=== PATIENT | female | born 1940 | race Caucasian/White ===

== ENCOUNTER 2019-03-18 17:10 | Emergency (ER) | payer MEDICARE, OTHER ==
[2019-03-18 17:43] VITALS: BP 155/80
[2019-03-18] MEDS ORDERED: Ipratropium 0.5MG/2.5ML NEB* 0.5 MG/2.5 ML NEB.SOLN INH ONE (17:59)
[2019-03-18] MEDS ORDERED: predniSONE TAB* 20 MG PO ONE (17:59)
[2019-03-18] MEDS ORDERED: Albuterol 2.5 MG/3 ML NEB.SOL* (0.083%) INH ONE (17:59)
--- NOTE | 2019-03-18 19:29 | UC ---
Respiratory Complaint HPI - HPI Summary HPI Summary: PATIENT IS HERE IN [place] VISITING FOR HER GRANDDAUGHTER'S GRADUATION. OVER THE PAST FEW DAYS SHE HAS DEVELOPED NASAL CONGESTION, COUGH, ST DUE TO COUGH, WHEEZE, SHORTNESS OF BREATH AND EAR PRESSURE. SHE DENIES ANY FEVER, NAUSEA/ VOMITING, CP. SHE STATES SHE HAS A 50 YEAR HISTORY OF SMOKING BUT QUIT 7 YEARS AGO. IS NOT SURE WHAT HER BASELINE OXYGEN SATURATION IS. STATES SHE HAS NEVER BEEN FORMALLY EVALUATED FOR COPD. SHE DOES NOT HAVE AN INHALER AT HOME. - History of Current Complaint Chief Complaint: UCRespiratory Stated Complaint: CHEST CONGESTION Time Seen by Provider: 03/18/19 17:37 Hx Obtained From: Patient, Family/Family Assessment Worker - SON Onset/Duration: Gradual Onset, Lasting Days, Still Present Timing: Constant Severity Initially: Moderate Severity Currently: Moderate Pain Intensity: 0 Pain Scale Used: 0-10 Numeric Character: Cough: Nonproductive Alleviating Factors: Nothing Associated Signs And Symptoms: Positive: Dyspnea, Wheezing, Nasal Congestion. Negative: Fever, Pleuritic Chest Pain, Hemoptysis, Dizziness, URI - Allergies/Home Medications Allergies/Adverse Reactions: Allergies Allergy/AdvReac Type Severity Reaction Status Date / Time contrast dye Allergy Hives Uncoded 03/18/19 17:44 Home Medications: Home Medications Aspirin 81 mg CHEW TAB* 81 mg PO DAILY 03/18/19 [History Confirmed 03/18/19] Metoprolol Tartrate 100 mg PO 03/18/19 [History] Multivit-Min/Iron/Folic/Lutein [Centrum Silver Women Tablet] 1 each PO 03/18/19 [History] amLODIPine TAB* [Norvasc 5 mg TAB*] 2.5 mg PO DAILY 03/18/19 [History Confirmed 03/18/19] hydrALAZINE TAB* [Apresoline TAB*] 25 mg PO BID 03/18/19 [History Confirmed ] hydroCHLOROthiazide [Hydrochlorothiazide] 12.5 mg PO 03/18/19 [History] PMH/Surg Hx/FS Hx/Imm Hx Endocrine History: Dyslipidemia Cardiovascular History: Cardiac Disease, Hypertension - Surgical History Surgical History: Yes Surgery Procedure, Year, and Place: cateract, hysterectomy - Family History Known Family History: Positive: Non-Contributory - Social History Alcohol Use: Weekly Substance Use Type: None Smoking Status (MU): Former Smoker Review of Systems All Other Systems Reviewed And Are Negative: Yes Constitutional: Positive: Negative ENT: Positive: Sore Throat, Ear Ache Respiratory: Positive: Shortness Of Breath, Cough, Other - WHEEZE Cardiovascular: Positive: Negative Gastrointestinal: Positive: Negative Physical Exam Triage Information Reviewed: Yes Appearance: Well-Appearing, No Pain Distress, Well-Nourished Vital Signs: Initial Vital Signs Temp 98.5 F 03/18/19 17:38 Pulse 78 03/18/19 17:38 Resp 18 03/18/19 17:38 BP 155/80 03/18/19 17:38 Pulse Ox 92 03/18/19 17:38 Vital Signs Reviewed: Yes Eyes: Positive: Conjunctiva Clear ENT: Positive: Hearing grossly normal, Pharynx normal, TMs normal Neck: Positive: Supple, Nontender, No Lymphadenopathy Respiratory: Positive: No respiratory distress, No accessory muscle use, Decreased breath sounds - MILDLY, Wheezing - OCCASIONAL EXP Cardiovascular Exam: Normal Abdomen Description: Positive: Soft Musculoskeletal: Positive: No Edema Neurological: Positive: Alert Psychological: Positive: Normal Response To Family, Age Appropriate Behavior Skin: Negative: Rashes Respiratory Course/Dx - Course Course Of Treatment: PATIENT FELT IMPROVED AFTER A DUONEB TREATMENT AND 40 MG OF PREDNISONE. LONG DISCUSSION WAS HAD WITH THE PATIENT AND HER SON ABOUT UNKNOWN BASELINE OXYGEN SATURATION. PATIENT HAS PRIMARY CARE PHYSICIANS IN BOTH [place] AND [place]. SHE HAS BEEN HERE IN [place] FOR A FEW DAYS FOR HER GRANDDAUGHTER'S GRADUATION. SHE WILL BE LEAVING TO GO BACK HOME TO [place] TOMORROW. GIVEN HER 50 YEAR HISTORY OF SMOKING SHE LIKELY HAS UNDERLYING COPD AND IT WOULD NOT BE SURPRISING IF 92% IS HER BASELINE OXYGEN SATURATION. GIVEN HER IMPROVEMENT AFTER A NEBULIZER TREATMENT AND PREDNISONE THE PATIENT HAS OPTED TO DEFER CHEST X-RAY FOR NOW IN FAVOR OF MEDICAL MANAGEMENT FOR PROBABLE COPD AND ALLERGIES. SHE STATES SHE WILL FOLLOW-UP WITH HER PCP WHEN SHE RETURNS TO [place] IN THE NEXT COUPLE OF DAYS. I HAVE ADVISED HER TO DISCUSS OFFICIAL EVALUATION FOR COPD. SHE WILL GO TO THE NEAREST EMERGENCY ROOM IF HER SYMPTOMS WORSEN. SHE WILL BE TREATED WITH PREDNISONE, ALBUTEROL INHALER, FLONASE AND OTC ANTIHISTAMINES. - Differential Dx/Diagnosis Provider Diagnosis: Environmental allergies, COPD suggested by initial evaluation Discharge - Sign-Out/Discharge Documenting (check all that apply): Patient Departure All imaging exams completed and their final reports reviewed: No Studies - Discharge Plan Condition: Stable Disposition: HOME Prescriptions: Albuterol HFA INHALER* [Ventolin HFA Inhaler*] 2 puff INH Q4H PRN #1 mdi PRN Reason: Shortness Of Breath Fluticasone NASAL SPRAY 50MCG* [Flonase NASAL SPRAY 50MCG*] 2 spray BOTH NARES DAILY #1 btl Inhaler, Assist Devices [Aerochamber Mini] 1 each MC Q4H PRN #1 spacer PRN Reason: Cough predniSONE TAB* [Deltasone 20 MG TAB*] 40 mg PO DAILY #8 tab Patient Education Materials: COPD (Chronic Obstructive Pulmonary Disease) (ED) , General Allergic Reaction (ED) Referrals: No Primary Care Phys,NOPCP [Primary Care Provider] - Additional Instructions: YOU LIKELY HAVE UNDERLYING COPD AND YOUR SYMPTOMS HAVE BEEN AGGRAVATED BY ALLERGIES TO THE LOCAL POLLENS. YOU FELT BETTER AFTER A NEBULIZER TREATMENT AND A DOSE OF PREDNISONE. WE WILL CONTINUE THE PREDNISONE ONCE DAILY FOR THE NEXT 4 DAYS. ALBUTEROL INHALER EVERY 4 HOURS NEEDED. I RECOMMEND YOU TAKE 2 PUFFS IN THE MORNING AND 2 PUFFS AT NIGHT BEFORE BED FOR NOW WHILE YOU ARE HAVING ACUTE SYMPTOMS. SIMILARLY I WOULD RECOMMEND YOU USE NASAL FLONASE TO HELP WITH NASAL CONGESTION DUE TO ALLERGIES. START TAKING OTC ZYRTEC ONCE DAILY IN THE MORNING. ONCE YOU'RE FEELING BETTER AND/OR YOU RETURN TO YOUR NORMAL CLIMATE YOUR SYMPTOMS WILL LIKELY SUBSIDE AND YOU MAY DISCONTINUE USING THESE MEDICINES. GO TO THE ER WITHOUT FAIL IF YOU DEVELOP WORSENING SHORTNESS OF BREATH, FEVER, CHEST PAIN OR ANY OTHER CONCERNING SYMPTOMS. YOUR OXYGEN SATURATION HERE WAS ABOUT 92%. THIS MAY BE YOUR BASELINE. GIVEN YOU FELT BETTER AFTER TREATMENT HERE TODAY WILL HOLD OFF ON CHEST XRAY FOR NOW. CONSIDER OFFICIAL EVALUATION FOR COPD WITH YOUR PCP BACK HOME. - Billing Disposition and Condition Condition: STABLE Disposition: Home
== END 2019-03-18 19:20 | disposition home or self-care (01) ==
LOC: UCEAST 17:10
DX: J30.2 Other seasonal allergic rhinitis (principal); R06.02 Shortness of breath; I11.9 Hypertensive heart disease without heart failure; Z79.82 Long term (current) use of aspirin; Z91.041 Radiographic dye allergy status; Z87.891 Personal history of nicotine dependence
CPT/HCPCS: 99202; G0463; J7512

== ENCOUNTER 2024-07-08 13:29 | Inpatient (IN) ==
[2024-07-08 17:08] LABS: ABS Basophils 0.1 10^3/uL (0.0-0.1); ABS Eosinophils 0.1 10^3/uL (0.0-0.5); ABS Lymphocytes 0.5 10^3/uL (1.0-4.8); ABS Monocytes 0.6 10^3/uL (0.0-0.9); ABS Neutrophils 9.1 10^3/uL (1.5-7.6); Eosinophil % 0.7 %; Hematocrit 27.9 % (35-45); Hemoglobin 8.9 g/dL (11.5-14.3); Lymphocyte % 5.3 %; Mean Corpuscular Hemoglobin 25.8 pg (27-33); Mean Corpuscular Hgb Conc 32.1 g/dL (31-36); Mean Corpuscular Volume 80.5 fL (80-97); Platelet Count 230 10^3/uL (150-450); Red Blood Count 3.46 10^6/uL (3.63-4.92); Red Cell Distribution Width 21.4 % (12-17); White Blood Count 10.3 10^3/uL (3.8-11.8)
[2024-07-08 17:48] LABS: Albumin 3.2 g/dL (3.2-5.2); Calcium 8.3 mg/dL (8.6-10.3); Creatinine, Serum 4.16 mg/dL (0.51-0.95); Globulin 3.2 g/dL (2-4); Potassium 4.1 mmol/L (3.5-5.0); Total Bilirubin 0.5 mg/dL (0.2-1.0); Total Protein 6.4 g/dL (6.4-8.9); eGFR CKD-EPI 10.1 (>60)
[2024-07-08 18:38] LABS: High Sensitivity Troponin 1 Hr 98 pg/mL (<15)
[2024-07-08] MEDS: Furosemide 40 mg/4 ml IV VIAL IV SLOW PU ONE (20:38)
[2024-07-08] MEDS: Heparin 5000 UNITS/ML 1 mL VIAL SUBCUT SCH (23:05)
[2024-07-08] MEDS: NF:BUDESONIDE/GLYCOPYR/FORMOTEROL MDI (NF) INH SCH (23:11)
[2024-07-09 07:08] LABS: ABS Basophils 0.1 10^3/uL (0.0-0.1); ABS Eosinophils 0.1 10^3/uL (0.0-0.5); ABS Lymphocytes 0.6 10^3/uL (1.0-4.8); ABS Monocytes 0.7 10^3/uL (0.0-0.9); ABS Neutrophils 7.6 10^3/uL (1.5-7.6); ABS Nucleated RBC 0.01 10^3/ul; Eosinophil % 1.4 %; Hematocrit 27.2 % (35-45); Hemoglobin 8.6 g/dL (11.5-14.3); Lymphocyte % 6.9 %; Mean Corpuscular Hemoglobin 25.9 pg (27-33); Mean Corpuscular Hgb Conc 31.7 g/dL (31-36); Mean Corpuscular Volume 81.7 fL (80-97); Mean Platelet Volume 9.4 fL (7.5-11.2); Nucleated Red Blood Cells % 0.1 %/100WBC (0.0-0.8); Platelet Count 210 10^3/uL (150-450); Red Blood Count 3.33 10^6/uL (3.63-4.92); Red Cell Distribution Width 21.5 % (12-17); White Blood Count 9.2 10^3/uL (3.8-11.8)
[2024-07-09 07:19] LABS: Calcium 8.2 mg/dL (8.6-10.3); Creatinine, Serum 4.11 mg/dL (0.51-0.95); eGFR CKD-EPI 10.3 (>60)
[2024-07-09] MEDS: Albuterol HFA INHALER 8 gm MDI INH PRN (08:26)
[2024-07-09] MEDS: Sulfur Hexaflouride MICROSPHR 25 MG VIAL IV PRN (11:34)
[2024-07-09] MEDS: Furosemide 40 mg/4 ml IV VIAL IV SCH (13:54)
[2024-07-09] MEDS ORDERED: Dextran 70/Hypromellose Tears Eye Drops 15 ml BTL (for Artificials Tears) BOTH EYES PRN (18:48)
[2024-07-09] MEDS: Heparin 5000 UNITS/ML 1 mL VIAL SUBCUT ONE (20:40)
[2024-07-09] MEDS ORDERED: Heparin 5000 UNITS/ML 1 mL VIAL SUBCUT SCH (21:00)
[2024-07-10 06:33] LABS: ABS Basophils 0.1 10^3/uL (0.0-0.1); ABS Eosinophils 0.1 10^3/uL (0.0-0.5); ABS Lymphocytes 0.6 10^3/uL (1.0-4.8); ABS Monocytes 0.7 10^3/uL (0.0-0.9); ABS Nucleated RBC 0.01 10^3/ul; Eosinophil % 1.1 %; Hematocrit 27.9 % (35-45); Lymphocyte % 5.4 %; Mean Corpuscular Hemoglobin 26.2 pg (27-33); Mean Corpuscular Hgb Conc 32.2 g/dL (31-36); Mean Corpuscular Volume 81.4 fL (80-97); Mean Platelet Volume 9.1 fL (7.5-11.2); Nucleated Red Blood Cells % 0.1 %/100WBC (0.0-0.8); Platelet Count 219 10^3/uL (150-450); Red Blood Count 3.42 10^6/uL (3.63-4.92); Red Cell Distribution Width 21.6 % (12-17); White Blood Count 10.5 10^3/uL (3.8-11.8)
[2024-07-10 06:57] LABS: Albumin 3.1 g/dL (3.2-5.2); Calcium 8.3 mg/dL (8.6-10.3); Creatinine, Serum 4.41 mg/dL (0.51-0.95); Globulin 3.1 g/dL (2-4); Magnesium 2.1 mg/dL (1.9-2.7); Total Bilirubin 0.6 mg/dL (0.2-1.0); Total Protein 6.2 g/dL (6.4-8.9); eGFR CKD-EPI 9.4 (>60)
[2024-07-10] MEDS: NF:Multivitamins/Minera Areds(NF) CAP PO SCH (10:10)
[2024-07-10] MEDS: Lactated Ringers 1000 ml BAG 1,000 ML IV SCH (12:15)
[2024-07-10] MEDS: Lactated Ringers 1000 ml BAG 500 ML IV SCH (12:41)
[2024-07-10] MEDS: Saline NASAL SPRAY 0.65% BTL BOTH NARES PRN (15:18)
[2024-07-10] MEDS: Lidocaine 1% MPF 5 ML VIAL INJ ONE (17:06)
[2024-07-10 19:57] LABS: Body Fluid Total Nucleated 145 /mcL
[2024-07-10 20:10] LABS: Body Fluid Appearance Clear; Body Fluid Color Yellow; Body Fluid Source Pleural Fluid
[2024-07-10 20:46] LABS: Body Fluid Mono 30 %; Body Fluid Other Cells 7; Body Fluid Total Cells Counted 200
[2024-07-10] MEDS: Heparin 5000 UNITS/ML 1 mL VIAL SUBCUT SCH (22:12)
[2024-07-11 07:28] LABS: ABS Basophils 0.1 10^3/uL (0.0-0.1); ABS Eosinophils 0.1 10^3/uL (0.0-0.5); ABS Lymphocytes 0.7 10^3/uL (1.0-4.8); ABS Monocytes 0.8 10^3/uL (0.0-0.9); ABS Nucleated RBC 0.01 10^3/ul; Eosinophil % 1.1 %; Hematocrit 27.2 % (35-45); Hemoglobin 8.6 g/dL (11.5-14.3); Lymphocyte % 6.3 %; Mean Corpuscular Hemoglobin 25.8 pg (27-33); Mean Corpuscular Hgb Conc 31.8 g/dL (31-36); Mean Corpuscular Volume 81.1 fL (80-97); Mean Platelet Volume 9.5 fL (7.5-11.2); Nucleated Red Blood Cells % 0.1 %/100WBC (0.0-0.8); Platelet Count 207 10^3/uL (150-450); Red Blood Count 3.35 10^6/uL (3.63-4.92); Red Cell Distribution Width 21.4 % (12-17); White Blood Count 10.7 10^3/uL (3.8-11.8)
[2024-07-11 07:51] LABS: Albumin 2.9 g/dL (3.2-5.2); Calcium 8.2 mg/dL (8.6-10.3); Creatinine, Serum 4.75 mg/dL (0.51-0.95); Magnesium 1.9 mg/dL (1.9-2.7); Potassium 3.8 mmol/L (3.5-5.0); Total Bilirubin 0.5 mg/dL (0.2-1.0); Total Protein 5.9 g/dL (6.4-8.9); eGFR CKD-EPI 8.6 (>60)
[2024-07-12 06:57] LABS: ABS Basophils 0.1 10^3/uL (0.0-0.1); ABS Eosinophils 0.1 10^3/uL (0.0-0.5); ABS Lymphocytes 0.6 10^3/uL (1.0-4.8); ABS Monocytes 0.7 10^3/uL (0.0-0.9); ABS Neutrophils 8.1 10^3/uL (1.5-7.6); ABS Nucleated RBC 0.01 10^3/ul; Eosinophil % 1.3 %; Hemoglobin 8.5 g/dL (11.5-14.3); Lymphocyte % 6.2 %; Mean Corpuscular Hemoglobin 26.4 pg (27-33); Mean Corpuscular Hgb Conc 32.7 g/dL (31-36); Mean Corpuscular Volume 80.7 fL (80-97); Nucleated Red Blood Cells % 0.1 %/100WBC (0.0-0.8); Platelet Count 185 10^3/uL (150-450); Red Blood Count 3.22 10^6/uL (3.63-4.92); White Blood Count 9.6 10^3/uL (3.8-11.8)
[2024-07-12 07:15] LABS: Albumin 2.8 g/dL (3.2-5.2); Creatinine, Serum 4.65 mg/dL (0.51-0.95); Globulin 2.9 g/dL (2-4); Magnesium 1.9 mg/dL (1.9-2.7); Potassium 3.6 mmol/L (3.5-5.0); Total Bilirubin 0.6 mg/dL (0.2-1.0); Total Protein 5.7 g/dL (6.4-8.9); eGFR CKD-EPI 8.8 (>60)
[2024-07-12] MEDS: Influenza Vaccine *TRI* 2024-25* 0.5 ML SYRINGE IM ONE (09:26)
[2024-07-12] MEDS ORDERED: Polyethylene Glycol 3350 17 GM PACKET PO PRN (09:58)
[2024-07-12] MEDS ORDERED: Magnesium Hydroxide LIQ 30 ML UDC PO PRN (09:58)
[2024-07-12 13:24] LABS: Lactate Dehydrogenase, BF 94 U/L
[2024-07-12] MEDS: Magnesium Hydroxide LIQ 30 ML UDC PO SCH (21:47)
[2024-07-13 05:55] LABS: ABS Basophils 0.1 10^3/uL (0.0-0.1); ABS Eosinophils 0.2 10^3/uL (0.0-0.5); ABS Lymphocytes 0.5 10^3/uL (1.0-4.8); ABS Monocytes 0.8 10^3/uL (0.0-0.9); Eosinophil % 1.9 %; Hematocrit 24.6 % (35-45); Hemoglobin 8.2 g/dL (11.5-14.3); Mean Corpuscular Hemoglobin 26.5 pg (27-33); Mean Corpuscular Hgb Conc 33.3 g/dL (31-36); Mean Corpuscular Volume 79.6 fL (80-97); Platelet Count 189 10^3/uL (150-450); White Blood Count 9.6 10^3/uL (3.8-11.8)
[2024-07-13 06:13] LABS: Albumin 2.8 g/dL (3.2-5.2); Calcium 8.1 mg/dL (8.6-10.3); Creatinine, Serum 4.32 mg/dL (0.51-0.95); Globulin 2.8 g/dL (2-4); Magnesium 2.2 mg/dL (1.9-2.7); Potassium 3.6 mmol/L (3.5-5.0); Total Bilirubin 0.5 mg/dL (0.2-1.0); Total Protein 5.6 g/dL (6.4-8.9); eGFR CKD-EPI 9.7 (>60)
[2024-07-13] MEDS: Potassium Chlor 20 meq TAB.ER PO ONE (09:38)
[2024-07-13 09:53] LABS: Albumin, BF 1.2 g/dL; Fluid Type, Albumin Pleural Fluid; Fluid Type, Amylase Pleural Fluid; Fluid Type, Protein, Total PLEURAL; Glucose, BF 140 mg/dL; Total Protein, BF 2.2 g/dL
[2024-07-13 10:33] LABS: Fluid Type: PLEURAL; Triglycerides (BF) 96 mg/dL
[2024-07-14 05:59] LABS: ABS Basophils 0.1 10^3/uL (0.0-0.1); ABS Eosinophils 0.2 10^3/uL (0.0-0.5); ABS Lymphocytes 0.6 10^3/uL (1.0-4.8); ABS Monocytes 0.9 10^3/uL (0.0-0.9); ABS Neutrophils 9.6 10^3/uL (1.5-7.6); Eosinophil % 1.5 %; Hematocrit 25.8 % (35-45); Hemoglobin 8.3 g/dL (11.5-14.3); Lymphocyte % 5.5 %; Mean Corpuscular Hemoglobin 25.9 pg (27-33); Mean Corpuscular Hgb Conc 32.1 g/dL (31-36); Mean Corpuscular Volume 80.8 fL (80-97); Mean Platelet Volume 9.3 fL (7.5-11.2); Platelet Count 213 10^3/uL (150-450); Red Blood Count 3.19 10^6/uL (3.63-4.92); Red Cell Distribution Width 21.4 % (12-17); White Blood Count 11.5 10^3/uL (3.8-11.8)
[2024-07-14 06:52] LABS: Albumin 2.8 g/dL (3.2-5.2); Albumin/Globulin Ratio 0.9 (1-3); Calcium 8.4 mg/dL (8.6-10.3); Creatinine, Serum 4.36 mg/dL (0.51-0.95); Globulin 3.1 g/dL (2-4); Potassium 3.8 mmol/L (3.5-5.0); Total Bilirubin 0.5 mg/dL (0.2-1.0); Total Protein 5.9 g/dL (6.4-8.9); eGFR CKD-EPI 9.6 (>60)
[2024-07-14 09:52] LABS: Body Fluid Bilirubin 0.2 mg/dL; Fluid Type PLEURAL; Fluid Type: PLEURAL
[2024-07-14] MEDS: Senna TAB 8.6 mg TAB PO PRN (10:31)
[2024-07-14] MEDS ORDERED: Polyethylene Glycol 3350 17 GM PACKET PO PRN (12:41)
[2024-07-14] MEDS ORDERED: Senna TAB 8.6 mg TAB PO PRN (12:41)
[2024-07-14] MEDS: Scopolamine 1 mg/72hr PATCH TRANSDERM SCH (15:03)
[2024-07-15 21:25] VITALS: BP 109/70
[2024-07-16] MEDS: Ondansetron ODT 4 mg TAB 4 MG TAB SL PRN (04:15)
[2024-07-16] MEDS ORDERED: Morphine ORAL CONCENTRATE 5 MG/0.25 ML ORAL.SYRIN SL PRN (09:55)
[2024-07-16] MEDS: Morphine ORAL CONCENTRATE 5 MG/0.25 ML ORAL.SYRIN SL PRN ×3 (10:09→19:00)
[2024-07-16] MEDS: Morphine ORAL.SOLN 10 mg 2 mg/ml UDC 5 ml (10 mg) PO ONE (17:13)
== END 2024-07-17 04:12 | disposition expired | DRG 682 ==
LOC: ED 13:29 → EDHOLD 13:29 → SUATTDRO 19:01 → MED 07-09 10:34 → SUATTDRO 07-10 17:48
PROVIDERS: ADMIT Hospitalist; ATTEND Student in an Organized Health Care Education/Training Program